=== PATIENT | female | born 2000 | race Two or more races ===

== ENCOUNTER 2020-08-13 20:12 | Emergency (ER) | payer SELFPAY ==
[~2020-08-13] VITALS: Ht 170.2 cm; Wt 128.3 kg
--- NOTE | 2020-08-13 21:09 | NUR ---
CC OF ABD PAIN STARTING YESTERDAY IN UPPER MIDDLE AND LOWER MIDDLE ABD. PT RESTING IN GURNEY, TEARFUL ABOUT PAIN. LAST TOOK TYLENOL YESTERDAY AT 1630.
[2020-08-13] MEDS ORDERED: ONDANSETRON 2MG/ML, 2ML IVPush ONE (21:30)
[2020-08-13] MEDS ORDERED: SODIUM CHLORIDE FLUSH 10ML SYR IVF ONE (21:30)
[2020-08-13 21:40] LABS: MICROSCOPIC INDICATED
[2020-08-13] MEDS ORDERED: MORPHINE SULFATE 4 MG/ML, 1ML ONE ×2 (21:41→23:01)
[2020-08-13] MEDS ORDERED: ONDANSETRON 2MG/ML, 2ML ONE (21:41)
[2020-08-13] MEDS: MORPHINE SULFATE 4 MG/ML, 1ML IVPush PRN ×2 (21:43→23:03)
[2020-08-13 21:59] LABS: ALANINE AMINOTRANSFERASE 25 U/L (12-78); ALBUMIN 3.7 g/dL (3.4-5.0); ANION GAP 7 mmol/L (5-15); CALCIUM 9.6 mg/dL (8.5-10.1); CHLORIDE 105 mmol/L (98-107); CREATININE 0.83 mg/dL (0.55-1.02)
[2020-08-13 22:01] LABS: BASOPHILS % (AUTO) 0 % (0-1); EOSINOPHILS % (AUTO) 0 % (1-7); LYMPHOCYTES % (AUTO) 10 % (22-44); MEAN CORPUSCULAR HEMOGLOBIN 27.1 pg (27.0-34.8); MEAN CORPUSCULAR HGB CONC 33.3 g/dL (32.4-35.8); MEAN PLATELET VOLUME 7.9 fL (7.4-10.4); MONOCYTES % (AUTO) 4 % (2-9); NEUTROPHILS % (AUTO) 85 % (42-75); PLATELET COUNT 308 x10^3/uL (130-400); RED BLOOD COUNT 5.17 x10^6/uL (3.82-5.3)
[2020-08-13 22:03] LABS: ALKALINE PHOSPHATASE 109 U/L (45-117); MD NO; TOTAL PROTEIN 8.8 g/dL (6.4-8.2)
[2020-08-13] MEDS ORDERED: OMNIPAQUE 350 MG/ML, 150 ML BOTTLE ONE (22:40)
--- NOTE | 2020-08-13 23:07 | NUR ---
PT STATES PAIN HAS NOT IMPROVED, MORE PAIN MEDICATIONS GIVEN.
--- NOTE | 2020-08-13 23:32 | NUR ---
Waiting for re-eval and dispo.
[2020-08-13 23:36] VITALS: BP 129/83
--- NOTE | 2020-08-13 23:43 | NUR ---
Waiting for dispo, PAMagdaleneC to speak with pt and family. VSS.
== END 2020-08-14 00:09 | disposition home or self-care (01) ==
LOC: ED 22:36
DX: K52.9 Noninfective gastroenteritis and colitis, unspecified (principal)
CPT/HCPCS: 36415; 74177; 80053; 81001; 83690; 84703; 85025; 87086; 96374; 96375; 96376; 99285; J2270; J2405; Q9967

== ENCOUNTER 2020-08-14 16:58 | Emergency (ER) | payer SELFPAY ==
[~2020-08-14] VITALS: Ht 170.2 cm; Wt 126.7 kg
--- NOTE | 2020-08-14 17:46 | NUR ---
PT LAST NIGHT HAD ABD PAIN STARTED AROUND 1800 PM, WED PAIN WORSENED AND CAME INTO ED AT 1900. PT PAIN HAS INCREASED PRIMARLIY LOCATED IN MIDDLE OF ABD BOTH UPPER AND LOWER QUAD. CURRENTLY RATING PAIN 11/08. REPORTS OF N/V, CURRENTLY N. LAST EMESIS WAS 1600, WITH LAST EMESIS PT REPORTS SEEING KAYLEE BLOOD. LBM TUESDAY LITTLE, HARD STOOL.
[2020-08-14] MEDS ORDERED: ONDANSETRON 2MG/ML, 2ML IVPush ONE (18:00)
[2020-08-14] MEDS ORDERED: SODIUM CHLORIDE FLUSH 10ML SYR IVF ONE (18:00)
--- NOTE | 2020-08-14 18:09 | NUR ---
PT TO XRAY
--- NOTE | 2020-08-14 18:22 | NUR ---
Went in to start IV and straight cath, pt had run to bathroom d/t V/D.
[2020-08-14 18:28] LABS: MEAN CORPUSCULAR HEMOGLOBIN 26.7 pg (27.0-34.8); MEAN PLATELET VOLUME 7.6 fL (7.4-10.4); PLATELET COUNT 301 x10^3/uL (130-400); RED BLOOD COUNT 4.77 x10^6/uL (3.82-5.3)
[2020-08-14 18:34] LABS: ALANINE AMINOTRANSFERASE 20 U/L (12-78); ANION GAP 8 mmol/L (5-15); CALCIUM 9.4 mg/dL (8.5-10.1); CHLORIDE 105 mmol/L (98-107); CREATININE 0.81 mg/dL (0.55-1.02)
[2020-08-14 18:37] LABS: ALKALINE PHOSPHATASE 100 U/L (45-117); BILIRUBIN,TOTAL 0.8 mg/dL (0.2-1.0)
[2020-08-14] MEDS ORDERED: ONDANSETRON 2MG/ML, 2ML ONE (18:37)
[2020-08-14] MEDS ORDERED: MORPHINE SULFATE 4 MG/ML, 1ML ONE ×2 (18:37→21:30)
[2020-08-14 18:39] LABS: MD YES
[2020-08-14] MEDS: MORPHINE SULFATE 4 MG/ML, 1ML IVPush PRN ×2 (18:40→21:32)
--- NOTE | 2020-08-14 18:42 | NUR ---
PT MEDICATED PER JUN. PT ON CONTINUOUS SPO2 MONITOR AND BP CUFF SET TO Q30 MINS. CALL BUTTON IN LAP. MOM AT BEDSIDE.
--- NOTE | 2020-08-14 18:57 | NUR ---
BEDSIDE REPORT FROM TONO CALERO
--- NOTE | 2020-08-14 19:18 | NUR ---
STRAIGHT CATH PERFORMED PER ERP ORDER. AREA CLEANSED PER POLICY. PT TOLERATED WELL. URINE SAMPLE WALKED TO LAB BY THIS RN. PT DENIES ANY ADDITIONAL NEEDS AT THIS TIME. MOTHER AT BEDSIDE. CALL LIGHT AND PERSONAL BELONGINGS WITHIN REACH.
[2020-08-14 19:26] LABS: BAND#(MANUAL) 0.35 x10^3/uL; BANDS%(MANUAL) 2 % (0-7); LYMPH#(MANUAL) 1.38 x10^3/uL (1-3.4); LYMPHS% (MANUAL) 8 % (22-44); MONOS#(MANUAL) 0.69 x10^3/uL (0.3-2.7); MONOS% (MANUAL) 4 % (2-9); SEG#(MANUAL) 14.88 x10^3/uL (1.8-6.8); SEGS% (MANUAL) 86 % (42-75)
[2020-08-14 19:27] LABS: <PLATELET ESTIMATE> ADEQUATE; <PLT MORPHOLOGY> NORMAL PLT MORPH; <RBC MORPHOLOGY> NORMAL
[2020-08-14 19:28] LABS: MICROSCOPIC AUTO
--- NOTE | 2020-08-14 20:09 | NUR ---
US AT BEDSIDE
--- NOTE | 2020-08-14 21:37 | NUR ---
THIS RN AT BEDSIDE WITH ERP DR. RUSSELL FOR RECAL EXAM. PT TOLERATED WELL.
[2020-08-14 22:08] VITALS: BP 116/72
--- NOTE | 2020-08-14 22:08 | NUR ---
Patient given discharge instructions and they have confirmed that they understand the instructions. Patient ambulatory with steady gait.
== END 2020-08-14 22:10 | disposition home or self-care (01) ==
LOC: ED 17:28
DX: K59.00 Constipation, unspecified (principal); R10.84 Generalized abdominal pain; R11.2 Nausea with vomiting, unspecified
CPT/HCPCS: 36415; 74018; 76700; 80053; 81001; 85025; 96374; 96375; 96376; 99285; J2270; J2405